=== PATIENT | male | born 1980 | race Two or more races ===

== ENCOUNTER 2021-10-17 12:15 | Emergency (ER) | payer OTHER ==
[~2021-10-17] VITALS: Ht 170.2 cm; Wt 83.6 kg
[2021-10-17 16:52] LABS: Urine Bacteria NONE SEEN /hpf (None Seen); Urine Blood Negative /uL (Negative); Urine Specific Gravity 1.023 (1.001-1.035); Urine WBC <1 /hpf (0 - 3)
[2021-10-17 17:41] VITALS: BP 122/86
[2021-10-17] MEDS ORDERED: ACYC-161 PO (17:51)
== END 2021-10-17 17:58 | disposition home or self-care (01) ==
LOC: ER 12:15
DX: A60.00 Herpesviral infection of urogenital system, unspecified (principal)
CPT/HCPCS: 81001